=== PATIENT | female | born 1960 | race Caucasian/White ===

== ENCOUNTER 2020-07-31 19:36 | Emergency (ER) | payer OTHER ==
[~2020-07-31] VITALS: Ht 157.5 cm; Wt 63.0 kg
[2020-07-31] MEDS ORDERED: NEURONTIN 300M300 M2 PO (19:46)
[2020-07-31] MEDS ORDERED: PROPANOLOL (19:46)
[2020-07-31] MEDS ORDERED: BUSPIRONE HCL10 MG PO (19:47)
[2020-07-31] MEDS ORDERED: VALSARTAN80 MG PO (19:47)
[2020-07-31] MEDS ORDERED: HYDROCHLOROTH12.5 M1 PO (19:48)
[2020-07-31 21:14] VITALS: BP 167/82
== END 2020-07-31 21:00 | disposition home or self-care (01) ==
LOC: M.ERS 19:36
DX: R07.89 Other chest pain (principal); R09.81 Nasal congestion; R05 Cough; Z20.828 Contact with and (suspected) exposure to other viral communicable diseases; Z90.711 Acquired absence of uterus with remaining cervical stump; Z79.899 Other long term (current) drug therapy; Z88.5 Allergy status to narcotic agent